=== PATIENT | male | born 1965 | race African-American/Black ===

== ENCOUNTER 2021-05-03 20:39 | Inpatient (IN) | payer OTHER, MEDICAID ==
[~2021-05-03] VITALS: Ht 177.8 cm; Wt 100.0 kg
[~2021-05-03 20:39] MED LIST: DIL100C PO; HYDR1TAB PO; HYDR28CR14 TOP
[2021-05-03 21:01] LABS: BASOPHILS # (AUTO) 0.1 X10'3 (0-0.2); BASOPHILS % (AUTO) 0.7 % (0-1); EOSINOPHILS # (AUTO) 0.4 X10'3 (0-0.9); EOSINOPHILS % (AUTO) 4.8 % (0-6); HEMATOCRIT 42.8 % (42.0-52.0); HEMOGLOBIN 14.3 g/dl (14.0-17.9); LYMPHOCYTES # (AUTO) 1.8 X10'3 (1.1-4.8); LYMPHOCYTES % (AUTO) 22.5 % (21-51); MEAN CORPUSCULAR HEMOGLOBIN 29.5 PG (27.0-31.0); MEAN CORPUSCULAR HGB CONC 33.5 g/dL (33.0-36.5); MEAN CORPUSCULAR VOLUME 87.9 FL (78-98); MEAN PLATELET VOLUME 9.1 FL (7.4-10.4); MONOCYTES # (AUTO) 0.6 X10'3 (0-0.9); MONOCYTES % (AUTO) 7.9 % (2-12); NEUTROPHILS # (AUTO) 5.1 X10'3 (1.8-7.7); NEUTROPHILS % (AUTO) 64.1 % (42-75); PLATELET COUNT 208 X10'3 (140-440); RED BLOOD COUNT 4.87 X10'6 (4.70-6.10); RED CELL DISTRIBUTION WIDTH 14.5 % (11.5-14.5)
[2021-05-03 21:17] LABS: ALANINE AMINOTRANSFERASE 26 U/L (12-78); ALBUMIN 3.8 G/DL (3.4-5.0); ALBUMIN/GLOBULIN RATIO 0.7 (1.1-1.5); ALKALINE PHOSPHATASE 115 IU/L (46-116); ANION GAP 7 (8-16); ASPARTATE AMINO TRANSFERASE 22 U/L (10-37); BILIRUBIN,TOTAL 0.2 MG/DL (0.1-1.0); BLOOD UREA NITROGEN 17 MG/DL (7-18); BUN/CREATININE RATIO 11.8 (5.4-32.0); CALCIUM 8.7 MG/DL (8.5-10.1); CHLORIDE 103 MMOL/L (99-107); CREATININE 1.44 MG/DL (0.60-1.10); GLUCOSE 139 MG/DL (70-104); POTASSIUM 3.4 MMOL/L (3.5-5.1); SODIUM 141 MMOL/L (135-145); TOTAL CARBON DIOXIDE 31.1 MMOL/L (24-32); TOTAL PROTEIN 8.9 G/DL (6.4-8.2); eGFR 61 ML/MIN
[2021-05-03] MEDS ORDERED: nitroGLYCERIN 1gm ointment UD TP ONE (22:35)
[2021-05-03] MEDS ORDERED: aspirin 81mg tab.chew PO ONE (22:50)
[2021-05-04] MEDS ORDERED: diphenhydrAMINE 50 mg/ml inj IV PRN (00:20)
[2021-05-04] MEDS ORDERED: morphine 2 MG/ML inj. syringe IV PRN ×2 (00:20)
[2021-05-04] MEDS ORDERED: potassium Cl 20 mEq SR tablet PO PRN (00:20)
[2021-05-04] MEDS ORDERED: bisacodyl 10mg suppository rectal RC PRN (00:20)
[2021-05-04] MEDS ORDERED: acetaminophen 325mg tablet PO PRN (00:20)
[2021-05-04] MEDS ORDERED: acetaminophen 650mg rectal suppository RC PRN (00:20)
[2021-05-04] MEDS ORDERED: potassium Cl 40MEQ/1/2NS 520ml 520 ML IV PRN ×2 (00:20)
[2021-05-04] MEDS ORDERED: ondansetron 4mg rapidly disintigrating tab PO PRN (00:20)
[2021-05-04] MEDS: normal saline 1000ml 1,000 ML IV SCH ×2 (00:20→08:45)
[2021-05-04] MEDS ORDERED: HYDROcodone/acetaminophen 5mg/325mg tablet PO PRN (00:20)
[2021-05-04] MEDS ORDERED: diphenhydrAMINE 25mg capsule PO PRN (00:20)
[2021-05-04] MEDS ORDERED: magnesium hydroxide 30ml (MOM) UD suspension PO PRN (00:20)
[2021-05-04] MEDS ORDERED: mag hydrox/Alum hydrox/simeth 30ml oral suspension PO PRN (00:20)
[2021-05-04] MEDS ORDERED: HYDROcodone/acetaminophen 10/325mg tab PO PRN (00:20)
[2021-05-04] MEDS ORDERED: HYDROmorphone inj. 0.5 MG/0.5 ML DISP.SYRIN IV PRN (00:20)
[2021-05-04] MEDS ORDERED: ondansetron/PF 4mg/2ml inj IV PRN (00:20)
[2021-05-04 00:45] LABS: PARTIAL THROMBOPLASTIN TIME 28 SECONDS (22-32)
[2021-05-04 00:56] LABS: CLARITY,URINE CLEAR (Clear); COLOR,URINE YELLOW (Yellow); GLUCOSE, URINE NEGATIVE (Neg); KETONES,URINE NEGATIVE (Neg); LEUKOCYTE ESTERASE ,URINE NEGATIVE (Neg); NITRITES, URINE NEGATIVE (Neg); OCCULT BLOOD,URINE NEGATIVE (Neg); PH,URINE 6.5 (4.8-8.0); PROTEIN,URINE TRACE mg/dl (Neg); UROBILINOGEN,URINE 0.2 E.U/dL (0.2-1.0)
[2021-05-04 00:56] LABS: HEMOGLOBIN A1C 5.6 % (4.5-6.2)
[2021-05-04 01:01] LABS: URINE AMPHETAMINE SCREEN NEGATIVE (Neg); URINE BARBITUATE SCREEN NEGATIVE (Neg); URINE BENZODIAZEPINES SCREEN NEGATIVE (Neg); URINE CANNABINOID SCREEN NEGATIVE (Neg); URINE COCAINE SCREEN NEGATIVE (Neg); URINE METHADONE SCREEN POSITIVE (Neg); URINE OPIATE SCREEN NEGATIVE (Neg); URINE PHENCYCLIDINE SCREEN NEGATIVE (Neg)
[2021-05-04 01:05] LABS: BACTERIA,URINE NONE SEEN /HPF (Neg); RBC,URINE NONE SEEN /HPF (0-2); UA COLLECTION TYPE CLN CATCH MIDSTREAM; WBC,URINE 0-4 /HPF (0-4)
[2021-05-04 01:06] LABS: SQUAMOUS EPITHELIAL CELL,UR FEW /LPF (FEW)
[2021-05-04 01:07] LABS: CREATINE KINASE 239 U/L (39-308); LIPASE 262 U/L (73-393); MAGNESIUM 1.8 MG/DL (1.5-2.4); PHENYTOIN (DILANTIN) 1.2 UG/ML (10.0-20.0); PHOSPHORUS 3.6 MG/DL (2.3-4.5)
[2021-05-04] MEDS ORDERED: BECL10.62 PO (01:42)
[2021-05-04] MEDS: metoprolol tartrate 1mg/ml inj IV PRN ×2 (01:42→02:05)
[2021-05-04] MEDS ORDERED: CLON0.2T PO (01:42)
[2021-05-04] MEDS: LORazepam 2 mg/ml vial IV SCH ×2 (02:04→08:20)
[2021-05-04] MEDS ORDERED: hydrALAZINE 20mg/ml inj. IV ONE (02:10)
[2021-05-04] MEDS ORDERED: metoclopramide 5 mg/ml inj IV ONE (05:30)
[2021-05-04] MEDS ORDERED: diphenhydrAMINE 50 mg/ml inj IV ONE (05:30)
--- NOTE | 2021-05-04 06:48 | NUR ---
Patient in room ED 2. I have received report from MIMA Novoa and had the opportunity to ask questions and waiting for patients arrival.
[2021-05-04] MEDS: pantoprazole 40mg Tablet.DR PO SCH (07:27)
[2021-05-04] MEDS: nitroGLYCERIN 0.4mg/hour patch TD SCH (07:28)
[2021-05-04] MEDS: cloNIDine 0.1 mg tablet PO SCH ×2 (07:28→22:03)
[2021-05-04] MEDS: atorvastatin 20mg tablet PO SCH (07:28)
[2021-05-04] MEDS: amLODIPine 5mg tablet PO SCH (07:28)
[2021-05-04] MEDS: metoprolol tartrate 50mg tablet PO SCH ×2 (07:28→22:02)
[2021-05-04] MEDS: aspirin 81mg tablet.DR PO SCH (07:28)
--- NOTE | 2021-05-04 07:58 | NUR ---
Recieve pt 3022A Charan Shoulders. Pt is AO x 4, ambulated SBAx1 to the bed. Tele initiated, first set of vitals taken, CL within reach, BLL. MRSA swab collected, 2 RN skin check complete.
[2021-05-04] MEDS: K and/or MAG REPLACEMENT MC SCH ×2 (08:00→20:00)
[2021-05-04] MEDS: docusate sod 100mg capsule PO SCH ×2 (08:00→20:00)
[2021-05-04 08:02] VITALS: BP 208/124
[2021-05-04] MEDS: nicotine 21mg patch - 24 hr TD SCH (08:20)
[2021-05-04] MEDS: losartan 50mg tablet PO SCH (08:21)
[2021-05-04] MEDS: heparin, porcine 5000 units/ml vial SQ SCH ×2 (08:22→18:04)
[2021-05-04 09:30] VITALS: BP 146/95
[2021-05-04] MEDS: budesonide 0.5mg/2ml UD nebule IH SCH ×2 (10:28→19:39)
[2021-05-04 11:00] VITALS: BP 158/112
[2021-05-04] MEDS ORDERED: LORazepam 2 mg/ml vial IV PRN (11:35)
[2021-05-04] MEDS: levetiracetam 250mg tablet PO SCH ×2 (12:19→22:00)
[2021-05-04 15:00] VITALS: BP 136/76
[2021-05-04 18:00] VITALS: BP 135/91
--- NOTE | 2021-05-04 18:00 | NUR ---
Patient in room PCU 3022. I have received report from Dru and had the opportunity to ask questions and assume patient care.
--- NOTE | 2021-05-04 18:43 | NUR ---
Problems reprioritized. Patient report given, questions answered & plan of care reviewed with MIMA Schulte. Pt sitting up in bed eating dinner at change of shift. All pt needs met at this time.
[2021-05-04] MEDS ORDERED: temazepam 15mg capsule PO PRN (21:00)
[2021-05-04 22:00] VITALS: BP 132/86
[2021-05-04] MEDS: potassium Cl 20 mEq SR tablet PO PRN (22:04)
[2021-05-05 02:00] VITALS: BP 133/88
[2021-05-05] MEDS: heparin, porcine 5000 units/ml vial SQ SCH ×4 (02:38→23:36)
[2021-05-05] MEDS: potassium Cl 20 mEq SR tablet PO PRN (02:38)
[2021-05-05 06:00] VITALS: BP 151/99
--- NOTE | 2021-05-05 06:03 | NUR ---
Problems reprioritized. Patient report given, questions answered & plan of care reviewed with Arabella-RN.
--- NOTE | 2021-05-05 06:12 | NUR ---
Patient in room PCU 3022. I have received report from MIMA Schulte and had the opportunity to ask questions and assume patient care.
--- NOTE | 2021-05-05 06:13 | NUR ---
Patient in room PCU 3022. I have received report from MIMA Schulte and had the opportunity to ask questions and assume patient care.
[2021-05-05 07:06] LABS: BASOPHILS # (AUTO) 0.1 X10'3 (0-0.2); BASOPHILS % (AUTO) 0.9 % (0-1); EOSINOPHILS # (AUTO) 0.7 X10'3 (0-0.9); EOSINOPHILS % (AUTO) 8.9 % (0-6); HEMATOCRIT 40.3 % (42.0-52.0); HEMOGLOBIN 13.3 g/dl (14.0-17.9); LYMPHOCYTES # (AUTO) 2.1 X10'3 (1.1-4.8); LYMPHOCYTES % (AUTO) 28.2 % (21-51); MEAN CORPUSCULAR HEMOGLOBIN 28.9 PG (27.0-31.0); MEAN CORPUSCULAR HGB CONC 32.9 g/dL (33.0-36.5); MEAN PLATELET VOLUME 9.9 FL (7.4-10.4); MONOCYTES # (AUTO) 0.8 X10'3 (0-0.9); MONOCYTES % (AUTO) 10.4 % (2-12); NEUTROPHILS # (AUTO) 3.8 X10'3 (1.8-7.7); NEUTROPHILS % (AUTO) 51.6 % (42-75); PLATELET COUNT 209 X10'3 (140-440); RED BLOOD COUNT 4.58 X10'6 (4.70-6.10); RED CELL DISTRIBUTION WIDTH 15.1 % (11.5-14.5); WHITE BLOOD COUNT 7.4 X10'3 (4.5-11.0)
[2021-05-05 07:13] LABS: ALANINE AMINOTRANSFERASE 18 U/L (12-78); ALBUMIN 3.2 G/DL (3.4-5.0); ALBUMIN/GLOBULIN RATIO 0.8 (1.1-1.5); ALKALINE PHOSPHATASE 99 IU/L (46-116); ANION GAP 10 (8-16); ASPARTATE AMINO TRANSFERASE 18 U/L (10-37); BILIRUBIN,TOTAL 0.5 MG/DL (0.1-1.0); BLOOD UREA NITROGEN 19 MG/DL (7-18); BUN/CREATININE RATIO 11.8 (5.4-32.0); CALCIUM 8.5 MG/DL (8.5-10.1); CHLORIDE 106 MMOL/L (99-107); CHOL/HDL RATIO 3.8 (0.00-4.99); CHOLESTEROL 159 MG/DL (0-200); CREATININE 1.61 MG/DL (0.60-1.10); GLUCOSE 80 MG/DL (70-104); HDL CHOLESTEROL 42 MG/DL (35-60); LDL CHOLESTEROL 92 MG/DL (50-100); POTASSIUM 3.9 MMOL/L (3.5-5.1); SODIUM 142 MMOL/L (135-145); TOTAL CARBON DIOXIDE 25.6 MMOL/L (24-32); TRIGLYCERIDES 77 MG/DL (20-135); eGFR 54 ML/MIN
--- NOTE | 2021-05-05 07:13 | NUR ---
Paged EEG Re Shoulders, Charan [id number] Pt has had an EEG ordered since 05/04, are you able to do this today? Thank you [phone]
[2021-05-05] MEDS: K and/or MAG REPLACEMENT MC SCH ×2 (08:00→20:00)
[2021-05-05] MEDS: amLODIPine 5mg tablet PO SCH (08:31)
[2021-05-05] MEDS: nicotine 21mg patch - 24 hr TD SCH (08:31)
[2021-05-05] MEDS: levetiracetam 250mg tablet PO SCH ×2 (08:32→20:17)
[2021-05-05] MEDS: docusate sod 100mg capsule PO SCH ×2 (08:33→20:16)
[2021-05-05] MEDS: losartan 50mg tablet PO SCH (08:33)
[2021-05-05] MEDS: nitroGLYCERIN 0.4mg/hour patch TD SCH (08:33)
[2021-05-05] MEDS: cloNIDine 0.1 mg tablet PO SCH ×2 (08:34→20:16)
[2021-05-05] MEDS: metoprolol tartrate 50mg tablet PO SCH ×2 (08:34→20:17)
[2021-05-05] MEDS: atorvastatin 20mg tablet PO SCH (08:34)
[2021-05-05] MEDS: aspirin 81mg tablet.DR PO SCH (08:36)
[2021-05-05] MEDS: pantoprazole 40mg Tablet.DR PO SCH (08:36)
[2021-05-05] MEDS: budesonide 0.5mg/2ml UD nebule IH SCH ×2 (09:22→20:44)
[2021-05-05] MEDS ORDERED: metoprolol tartrate 1mg/ml inj IV PRN (10:25)
[2021-05-05] MEDS ORDERED: aminophylline 250mg/10ml inj. IV PRN (10:25)
[2021-05-05] MEDS ORDERED: regadenoson 0.4mg/5ml syringe IV ONE (10:25)
[2021-05-05] MEDS ORDERED: nitroGLYCERIN 0.4mg SUBLingual tab SL PRN (10:25)
[2021-05-05 11:00] VITALS: BP 104/60
[2021-05-05 15:00] VITALS: BP 115/75
--- NOTE | 2021-05-05 17:52 | NUR ---
[place] Medication Administration: For this medication-pass time frame, all medication were reviewed, dispensed, administered and documented per hospital policy by MIMA Trevino.
--- NOTE | 2021-05-05 17:52 | NUR ---
[place] documentation: I have reviewed and agree with all interventions, assessments performed and documented by MIMA Trevino.
[2021-05-05 18:00] VITALS: BP_SYST 136; BP_SYST 172; BP_DIAS 78; BP_DIAS 84
--- NOTE | 2021-05-05 18:08 | NUR ---
Problems reprioritized. Patient report given, questions answered & plan of care reviewed with MIMA Garza. Pt sitting up in bed, watching tv. Guard at bedside. All pt needs met at this time.
--- NOTE | 2021-05-05 18:08 | NUR ---
Problems reprioritized. Patient report given, questions answered & plan of care reviewed with MIMA Garza.
[2021-05-05 22:00] VITALS: BP 116/77
[2021-05-05] MEDS: normal saline 1000ml 1,000 ML IV SCH (23:36)
[2021-05-06] VITALS (11 sets, daily range): BP systolic 123–144; BP diastolic 65–100
--- NOTE | 2021-05-06 06:35 | NUR ---
Problems reprioritized. Patient report given, questions answered & plan of care reviewed with MIMA [place].
--- NOTE | 2021-05-06 06:35 | NUR ---
Patient in room PCU 3022. I have received report from Greg GUILLERMO and had the opportunity to ask questions and assume patient care.
[2021-05-06] MEDS: levetiracetam 250mg tablet PO SCH ×2 (07:28→19:24)
[2021-05-06] MEDS: atorvastatin 20mg tablet PO SCH (07:28)
[2021-05-06] MEDS: pantoprazole 40mg Tablet.DR PO SCH (07:28)
[2021-05-06] MEDS: cloNIDine 0.1 mg tablet PO SCH ×2 (07:28→19:24)
[2021-05-06] MEDS: losartan 50mg tablet PO SCH (07:29)
[2021-05-06] MEDS: aspirin 81mg tablet.DR PO SCH (07:29)
[2021-05-06] MEDS: amLODIPine 5mg tablet PO SCH (07:30)
[2021-05-06] MEDS: docusate sod 100mg capsule PO SCH ×2 (07:30→19:23)
[2021-05-06] MEDS: metoprolol tartrate 50mg tablet PO SCH ×2 (07:30→19:24)
[2021-05-06] MEDS: heparin, porcine 5000 units/ml vial SQ SCH ×3 (07:33→23:56)
[2021-05-06] MEDS: nicotine 21mg patch - 24 hr TD SCH (07:36)
[2021-05-06 07:45] LABS: BASOPHILS # (AUTO) 0.1 X10'3 (0-0.2); EOSINOPHILS # (AUTO) 0.6 X10'3 (0-0.9); EOSINOPHILS % (AUTO) 8.7 % (0-6); HEMOGLOBIN 13.1 g/dl (14.0-17.9); LYMPHOCYTES # (AUTO) 2.1 X10'3 (1.1-4.8); LYMPHOCYTES % (AUTO) 31.9 % (21-51); MEAN CORPUSCULAR HEMOGLOBIN 28.8 PG (27.0-31.0); MEAN CORPUSCULAR HGB CONC 32.8 g/dL (33.0-36.5); MEAN CORPUSCULAR VOLUME 87.9 FL (78-98); MONOCYTES # (AUTO) 0.6 X10'3 (0-0.9); MONOCYTES % (AUTO) 9.2 % (2-12); NEUTROPHILS # (AUTO) 3.2 X10'3 (1.8-7.7); NEUTROPHILS % (AUTO) 49.2 % (42-75); PLATELET COUNT 215 X10'3 (140-440); RED BLOOD COUNT 4.55 X10'6 (4.70-6.10); RED CELL DISTRIBUTION WIDTH 15.2 % (11.5-14.5); WHITE BLOOD COUNT 6.6 X10'3 (4.5-11.0)
[2021-05-06] MEDS: K and/or MAG REPLACEMENT MC SCH ×2 (08:00→18:54)
[2021-05-06] MEDS: nitroGLYCERIN 0.4mg/hour patch TD SCH (08:00)
[2021-05-06 08:19] LABS: ALANINE AMINOTRANSFERASE 17 U/L (12-78); ALBUMIN 3.2 G/DL (3.4-5.0); ALBUMIN/GLOBULIN RATIO 0.8 (1.1-1.5); ALKALINE PHOSPHATASE 95 IU/L (46-116); ANION GAP 13 (8-16); ASPARTATE AMINO TRANSFERASE 16 U/L (10-37); BILIRUBIN,TOTAL 0.4 MG/DL (0.1-1.0); BLOOD UREA NITROGEN 23 MG/DL (7-18); BUN/CREATININE RATIO 14.1 (5.4-32.0); CALCIUM 8.4 MG/DL (8.5-10.1); CHLORIDE 106 MMOL/L (99-107); CREATININE 1.63 MG/DL (0.60-1.10); GLUCOSE 79 MG/DL (70-104); POTASSIUM 3.8 MMOL/L (3.5-5.1); SODIUM 143 MMOL/L (135-145); TOTAL CARBON DIOXIDE 24.5 MMOL/L (24-32); TOTAL PROTEIN 7.1 G/DL (6.4-8.2); eGFR 53 ML/MIN
[2021-05-06] MEDS: budesonide 0.5mg/2ml UD nebule IH SCH ×2 (10:20→20:00)
--- NOTE | 2021-05-06 18:00 | NUR ---
Patient in room PCU 3022. I have received report from jordan mcdonough and had the opportunity to ask questions and assume patient care.
--- NOTE | 2021-05-06 19:05 | NUR ---
Problems reprioritized. Patient report given, questions answered & plan of care reviewed with Vera GUILLERMO.
[2021-05-07 02:00] VITALS: BP 127/65
[2021-05-07 06:00] VITALS: BP 148/72
[2021-05-07 06:24] LABS: BASOPHILS # (AUTO) 0.1 X10'3 (0-0.2); BASOPHILS % (AUTO) 0.9 % (0-1); EOSINOPHILS # (AUTO) 0.6 X10'3 (0-0.9); HEMATOCRIT 37.9 % (42.0-52.0); HEMOGLOBIN 12.6 g/dl (14.0-17.9); LYMPHOCYTES % (AUTO) 36.5 % (21-51); MEAN CORPUSCULAR HEMOGLOBIN 29.2 PG (27.0-31.0); MEAN CORPUSCULAR HGB CONC 33.4 g/dL (33.0-36.5); MEAN CORPUSCULAR VOLUME 87.3 FL (78-98); MEAN PLATELET VOLUME 9.8 FL (7.4-10.4); MONOCYTES # (AUTO) 0.6 X10'3 (0-0.9); MONOCYTES % (AUTO) 9.9 % (2-12); NEUTROPHILS # (AUTO) 2.4 X10'3 (1.8-7.7); NEUTROPHILS % (AUTO) 42.7 % (42-75); PLATELET COUNT 214 X10'3 (140-440); RED BLOOD COUNT 4.33 X10'6 (4.70-6.10); RED CELL DISTRIBUTION WIDTH 14.7 % (11.5-14.5); WHITE BLOOD COUNT 5.6 X10'3 (4.5-11.0)
[2021-05-07 06:31] LABS: ALANINE AMINOTRANSFERASE 12 U/L (12-78); ALBUMIN/GLOBULIN RATIO 0.8 (1.1-1.5); ALKALINE PHOSPHATASE 94 IU/L (46-116); ANION GAP 8 (8-16); ASPARTATE AMINO TRANSFERASE 14 U/L (10-37); BILIRUBIN,TOTAL 0.5 MG/DL (0.1-1.0); BLOOD UREA NITROGEN 16 MG/DL (7-18); BUN/CREATININE RATIO 11.5 (5.4-32.0); CALCIUM 8.5 MG/DL (8.5-10.1); CHLORIDE 107 MMOL/L (99-107); CREATININE 1.39 MG/DL (0.60-1.10); GLUCOSE 80 MG/DL (70-104); POTASSIUM 3.7 MMOL/L (3.5-5.1); SODIUM 142 MMOL/L (135-145); TOTAL CARBON DIOXIDE 27.3 MMOL/L (24-32); TOTAL PROTEIN 6.9 G/DL (6.4-8.2); eGFR 64 ML/MIN
[2021-05-07] MEDS: K and/or MAG REPLACEMENT MC SCH (06:44)
[2021-05-07] MEDS: docusate sod 100mg capsule PO SCH (07:52)
[2021-05-07] MEDS: metoprolol tartrate 50mg tablet PO SCH (07:52)
[2021-05-07] MEDS: aspirin 81mg tablet.DR PO SCH (07:52)
[2021-05-07] MEDS: pantoprazole 40mg Tablet.DR PO SCH (07:52)
[2021-05-07] MEDS: amLODIPine 5mg tablet PO SCH (07:52)
[2021-05-07 07:53] VITALS: BP_SYST 148
[2021-05-07] MEDS: losartan 50mg tablet PO SCH (07:53)
[2021-05-07] MEDS: levetiracetam 250mg tablet PO SCH (07:53)
[2021-05-07] MEDS: atorvastatin 20mg tablet PO SCH (07:53)
[2021-05-07] MEDS: cloNIDine 0.1 mg tablet PO SCH (07:53)
[2021-05-07] MEDS: nitroGLYCERIN 0.4mg/hour patch TD SCH (07:53)
[2021-05-07] MEDS: heparin, porcine 5000 units/ml vial SQ SCH (07:54)
[2021-05-07] MEDS: nicotine 21mg patch - 24 hr TD SCH (07:54)
[2021-05-07] MEDS: budesonide 0.5mg/2ml UD nebule IH SCH (08:23)
[2021-05-07] MEDS ORDERED: NICO-687 TD (09:21)
[2021-05-07] MEDS ORDERED: LEVE250T PO (09:21)
[2021-05-07] MEDS ORDERED: NOR5T PO (09:21)
[2021-05-07] MEDS ORDERED: ASPI-1071 PO (09:21)
[2021-05-07] MEDS ORDERED: PANT40TA54 PO (09:21)
[2021-05-07] MEDS ORDERED: METO50TA16 PO (09:21)
[2021-05-07] MEDS ORDERED: LOSA50TA64 PO (09:21)
--- NOTE | 2021-05-07 11:45 | NUR ---
PT DISCHARGED IN STABLE CONDITION. LEFT FACILITY WITH [employer] OFFICERS BACK TO [facility]. NO IV AT TIME OF DC. ALL BELONGINGS SENT WITH PT. FOLLOW UP INSTRUCTIONS GIVEN, CALLED MED[facility] AT THE [facility] AND GAVE DISCHARGE INSTRUCTIONS. Addendum: 05/07/21 at 1301 by Martina Ford RN Amended: Links added.
== END 2021-05-07 11:45 | DRG 100 ==
LOC: ER 20:41 → ED HOLD 05-04 00:19 → UNDOADMIN 05-04 00:19 → ED HOLD 05-04 00:24 → EEVIPCON 05-04 00:24 → PCU 3S 05-04 07:42 → ED HOLD 05-04 07:42
PROVIDERS: ADMIT Family Medicine; ATTEND Internal Medicine
PROC: 4A10X4Z Monitoring of Central Nervous Electrical Activity, External Approach (ICD-10-PCS; principal; 2021-05-05)
PROC: 4A02XM4 Measurement of Cardiac Total Activity, External Approach (ICD-10-PCS; 2021-05-06)
PROC: 3E073KZ Introduction of Other Diagnostic Substance into Coronary Artery, Percutaneous Approach (ICD-10-PCS; 2021-05-06)
DX: G40.909 Epilepsy, unspecified, not intractable, without status epilepticus (principal); I21.A1 Myocardial infarction type 2; I50.33 Acute on chronic diastolic (congestive) heart failure; I16.1 Hypertensive emergency; N17.9 Acute kidney failure, unspecified; I13.0 Hypertensive heart and chronic kidney disease with heart failure and stage 1 through stage 4 chronic kidney disease, or unspecified chronic kidney disease; E87.6 Hypokalemia; N18.30 Chronic kidney disease, stage 3 unspecified; R51.9 Headache, unspecified; F17.200 Nicotine dependence, unspecified, uncomplicated; Z79.899 Other long term (current) drug therapy; Z88.8 Allergy status to other drugs, medicaments and biological substances; Z91.14 Patient's other noncompliance with medication regimen; Z91.19 Patient's noncompliance with other medical treatment and regimen; Z71.6 Tobacco abuse counseling
CPT/HCPCS: 36415; 70450; 71045; 78452; 80053; 80061; 80185; 80305; 81001; 82088; 82550; 83036; 83690; 83735; 83880; 84100; 84244; 84443; 84484; 85025; 85610; 85730; 87081; 93005; 93017; 93306; 94640; 94760; 95816; 99285; A9500; G0378; J0360; J1200; J1644; J2060; J2270; J2765; J2785; J3490; J7030; J7626